=== PATIENT | male | born 1950 | race Caucasian/White ===

== ENCOUNTER 2018-10-10 13:35 | Day surgery (SDC) | payer OTHER ==
[2018-10-10] MEDS ORDERED: MIDAZOLAM 2 MG/2 ML VIAL ONE (13:51)
[2018-10-10] MEDS ORDERED: fentaNYL 100 MCG/2 ML INJ ONE (13:51)
[2018-10-10] MEDS ORDERED: FLUMAZENIL 0.5 MG/5 ML MDV IVP ONE (13:51)
[2018-10-10] MEDS ORDERED: NALOXONE HCL 0.4 MG/ML INJ ONE (13:51)
[2018-10-10] MEDS ORDERED: GLUCAGON HCL 1 MG VIAL IVP PRN (13:55)
[2018-10-10] MEDS ORDERED: FLUMAZENIL 0.5 MG/5 ML MDV IVP PRN (13:55)
[2018-10-10] MEDS ORDERED: MEPERIDINE 25 MG/ML SYR IVP PRN (13:55)
[2018-10-10] MEDS ORDERED: NALOXONE HCL 0.4 MG/ML INJ IVP PRN (13:55)
[2018-10-10] MEDS ORDERED: ceFAZolin 2 GM/DEXTROSE 100 ML IV ONE (13:55)
[2018-10-10] MEDS ORDERED: MIDAZOLAM 2 MG/2 ML VIAL IVP PRN (13:55)
[2018-10-10] MEDS ORDERED: fentaNYL 100 MCG/2 ML INJ IVP PRN (13:55)
[2018-10-10] MEDS ORDERED: CEFAZOLIN 2 GM/DEXTROSE/100 ML BAG IV ONE (13:58)
[2018-10-10] MEDS ORDERED: NS 1,000 ML IV SCH (14:00)
--- NOTE | 2018-10-10 14:47 | PDRADPRE ---
Radiology History & Physical Indication for procedure: cancer (Refractory ascites - plan for PleurX catheter) Home medications: Acetaminophen [Tylenol 325mg (*)] 325 mg PO Q3HRS 10/03/18 [Last Taken 10/03/18] Apixaban [Eliquis] 5 mg PO BID 10/03/18 [Last Taken 10/08/18] Atenolol [Tenormin 25 mg (*)] 25 mg PO DAILY 10/03/18 [Last Taken 10/02/18] Bimatoprost 0.01% [Lumigan 0.01% (*)] 1 drops EACHEYE HS 10/03/18 [Last Taken ] Brimonidine 0.2% [Alphagan 0.2%] 1 drop EACHEYE BID 10/03/18 [Last Taken ] Dorzolamide 2% [Trusopt 2% (*)] 1 drops EACHEYE BID 10/03/18 [Last Taken ] Hydrocodone/APAP 5/325 [Elma 5/325 (*)] 2 each PO Q4HRS PRN 10/03/18 [Last Taken 10/10/18] Timolol 0.5% [TIMOPTIC 0.5% (*)] 1 drops EACHEYE BID 10/03/18 [Last Taken ] glyBURIDE [Glyburide] 5 mg PO DAILY 10/03/18 [Last Taken 10/02/18] oxyCODONE HCL [Oxycontin] 10 mg PO BID 10/03/18 [Last Taken 10/10/18] Allergies/Adverse Reactions: glipizide Allergy (Verified 10/10/18 14:29) Unknown lisinopril Allergy (Verified 10/10/18 14:29) Cough Mental status: A&Ox3 Heart exam: regular rate and rhythm Lungs exam: clear to auscultation Mallampati Score: Class 2
--- NOTE | 2018-10-10 14:47 | PDPROPOC ---
Sedation Plan of Care Sedation Plan of Care: vital signs stable, mental status noted, patient educated of risks, benefits, alternatives, patient can tolerate sedation ASA Classification: ASA 2 Planned drugs: fentanyl, midazolam Mallampati Score: Class 2 Mallampati Reference Image: Patient passed 3-3-2 rule?: Yes
[2018-10-10] MEDS ORDERED: ALBUMIN 25% 100 ML IV ONE (15:28)
[2018-10-10] MEDS ORDERED: ONDANSETRON 4 MG/2 ML VIAL IVP PRN (15:28)
[2018-10-10] MEDS ORDERED: ACETAMINOPHEN 325 MG TAB PO PRN (15:28)
--- NOTE | 2018-10-10 15:31 | PDRADPN ---
Radiology Procedure Note Date of Procedure: 10/10/18 Radiologist: Khari Pedraza Anesthesia: IV Sedation Pre-op Diagnosis: Malignant asictes Post-op Diagnosis: Malignant ascites Indication: Cancer Procedure: PleurX catheter placement Finding(s): RLQ PleurX catheter placed. Inf/Abcess present in the surg proc area at time of surgery?: No Drains: Other (PleruX)
[2018-10-10] MEDS ORDERED: ALBUMIN 25% 100 ML SOLN IV ONE (15:54)
[2018-10-10 17:06] VITALS: BP 113/69
[2018-10-10] MEDS ORDERED: ALBUMIN 25% 200 ML IV ONE (17:30)
== END 2018-10-10 17:08 | disposition home or self-care (01) ==
LOC: FIMAGING 13:35
PROVIDERS: ATTEND Internal Medicine Hematology & Oncology
PROC: 0WH Anatomical Regions, General, Insertion (ICD-10-PCS; principal; 2018-10-10 15:58)
DX: C78.7 Secondary malignant neoplasm of liver and intrahepatic bile duct (principal); R18.0 Malignant ascites; C25.9 Malignant neoplasm of pancreas, unspecified
CPT/HCPCS: 49418; 76937; 99152; C1769; C2617; J0690; J1642; J2250; J2310; J3010; P9047